=== PATIENT | female | born 1940 | race Caucasian/White ===

== ENCOUNTER 2016-06-24 12:41 | Emergency (ER) | payer MEDICARE ==
[2016-06-24] MEDS ORDERED: ALBUTEROL SULFATE/IPRATROPIUM 3 ML NEBU IH ONE (12:53)
--- NOTE | 2016-06-24 13:18 | ERNOTE ---
Respiratory HPI - Narrative Date of Service: 06/24/16 - General Stated Complaint: Shortness of breath Time Seen by Provider: 06/24/16 12:50 Source: patient, family Exam Limitations: no limitations - History of Present Illness Initial Comments: Daughter States that [place] has been sick for over a week. Daughter states that her mom did have some intermittent confusion earlier in the week but it has since resolved. She states that patient has not eaten or drank enough in the last few days. Patient states she does not want to be here but understands that she needs to be here in the ER. Patient seems agitated with staff asking questions. Daughter states that patient does not see a doctor. Timing/Duration: week, getting worse Severity: moderate Possible Cause: smoke exposure Modifying Factors - (Improves): Reports: nothing Modifying Factors - (Worsens): Reports: coughing, lying down Associated Symptoms: Present: cough, shortness of breath. Absent: fever/chills - Immun/Allergies/Home Medications Immunization: IMMUNIZATION HX Immunizations Up to Date No History of Influenza Vaccine No Hx Pneumococcal Vaccination No Allergies/Adverse Reactions: Allergies Allergy/AdvReac Type Severity Reaction Status Date / Time No Known Allergies Allergy Verified 06/24/16 13:08 Home Medications: Home Medications Medication Instructions Recorded Last Taken NK [No Home Medication] 06/24/16 Unknown Review of Systems - Narrative Narrative: Daughter States patient has had this congested cough since Tuesday. Daughter states that she has been intermittently confused at times. The patient herself states she has a cough and she is now able to cough things up. - Review of Systems Constitutional: Present: fatigue, weakness EENTM: Present: nose congestion, nasal drainage Respiratory: Present: cough, orthopnea, short of breath, wheezing Cardiology: Present: edema - BLE +1 Gastrointestinal/Abdominal: Present: no symptoms reported Genitourinary: Present: no symptoms reported Musculoskeletal: Present: no symptoms reported Skin: Present: no symptoms reported Neurological: Present: no symptoms reported Endocrine: Present: no symptoms reported Hematologic/Lymphatic: Present: no symptoms reported - Social History Living Situations: alone Abuse History: No History of abuse Psych History: No pertinent hx Alcohol Use: rarely Drug Use: none - Immunizations Immunizations Up to Date: No Hx Pneumococcal Vaccination: No History of Influenza Vaccine: No Fever EXAM - Narrative Narrative: Patient short of breath, breathing anywhere from 20-33 times, she was very short of breath on oxygen 3L, patient has not bathed last few days, patient breath sounds are very coarse and wet. Patient prefers not to lay flat, Sits in almost a tri pod position. - Physical Exam General Appearance: Present: WD/WN, alert, mild distress Eye Exam: bilateral eye: normal inspection ENT Exam: Present: hearing grossly normal, dry mucous membranes Neck: Present: non-tender, full range of motion, supple Respiratory: Present: respiratory distress, decreased breath sounds, accessory muscle use, crackles, rhonchi. 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 Risks and benefits explained by this provider. Patient refusing other test. This provider approached her about the possibility of admission. Patient initially refused. After letting her family speak with her, and explaining her medical prognosis she then agreed to admission. Patient is noncompliant with medical treatments at home. Daughter states she has an abnormal chest x ray that she did not want to follow up on. Social work aware of these issues as well. Dr smallwood paged for admission. 06/24/16 15:23 06/24/16 17:15 patient made aware of her CT findings by Dr. Smallwood. Patient still wants to go home even though she will not have oxygen. patient stated she understood her condition and that she may become worse after she leaves without oxygen and medical care. Patient stated that she knows that she may or have low oxygen related injuries tonight to both myself and Dr. Smallwood. Patient is alert and oriented 4 she has been able to make her medical decision thus far. Her daughters are at the bedside and are aware of her decision to leave AMA. 06/24/16 20:27 - PROGRESS/REASSESSMENT Chief Complaint: Dyspnea Condition: Unchanged Progress Note-Subjective: 06/24/16 20:19 Patient left AMA. Patient was spoken to by Dr. Smallwood and this provider regarding her condition. patient stated that she wantedto go home. Patient did repeat that she understood that she may if she leaves the facility without oxygen patient. Restated that she understood that she left the facility without oxygen she may . Patient did agree to make a follow-up appointment tomorrow with Dr. Smallwood regarding her oxygen. Patient's daughters were with her as time and aware of her decision. - VITAL SIGNS Vital Signs - Last Taken Temp 36.6 C 08/03/14 06:34 Pulse Resp BP 124/64 08/03/14 06:34 Pulse Ox - RESULTS AND ORDERS Patient's Lab Results:: I have reviewed the patient's lab results. Results and Orders: 06/24/16 14:56 elevated WBC, abnormal ABG - X-Ray X-Ray #1 XRAY: chest X-Ray Interpretation: Reviewed by me X-Ray Comments: Findings: The cardiac silhouette is within normal limits of size. The mediastinum and hilum are with in normal limits. The lung hernandez are clear. I do not see evidence for an infiltrate, effusion or pulmonary edema. IMPRESSION: 1. NO ACUTE CARDIOPULMONARY PROCESS. Electronically signed by Herbie Del Angel M.D.. - CT/ULTRASOUND CT/Ultrasound Narrative: [facility] PATIENT RADIOLOGY STUDY REPORT Patient Patient Name:SHAWNEE PARK Date: 1940 Sex: F Order Number: [id number] Unique Exam ID: [id number] Exam Requested: ANGIOCHES - CTA Chest * Date Scheduled: Study Priority: Requesting Service: Requesting Physician: Ayaz Silverman Reason for Exam: sob Radiological Report : Exam Date: 06/24/2016 16:54 Ordering Physician: Ayaz Silverman History: Short of breath. Additional history provided by the technologist: Short of breath x5 days. Cough. Painful to lay flat. Technique: Multiple contrast-enhanced axial CT images of the chest were obtained, according to pulmonary angiography protocol. Coronal reconstructed maximal intensity projection images were also submitted for interpretation. Comparisons: CT dated August 01, 2014.. Findings: CT PULMONARY ANGIOGRAPHY WITH CONTRAST, WITH CORONAL MIP IMAGES: There is adequate opacification of the pulmonary arterial tree. There is no evidence of pulmonary embolism. Normal caliber main pulmonary artery. The thyroid gland and thoracic inlet are unremarkable. Again demonstrated is abnormal mediastinal and hilar lymphadenopathy. There is no pathologic axillary lymphadenopathy. Normal caliber thoracic aorta with scattered atherosclerotic changes. The heart size and cardiac chambers are normal. The pericardium is unremarkable. Moderate coronary artery calcifications noted. Abnormal appearance of the lung parenchyma with diffuse pulmonary nodules again identified. Several of these nodules appear to be in a bronchovascular distribution. Additionally, there is suggestion of coalescing nodules at the lung apices that appear to progress as compared to the prior exam. There is nodular thickening of the major fissures. No consolidation or pulmonary mass. The trachea and central airways are patent. There is narrowing of the airways at the level of the elba secondary to bulky lymphadenopathy. No bronchiectasis. No bronchial wall thickening. There is nodular thickening of the left adrenal glands, unchanged, which may represent sequela of a adrenal gland adenoma. The right adrenal gland is unremarkable. There is a slightly nodular hepatic contour; correlate for cirrhosis. Scattered calcified splenic granulomas. There is a small hiatal hernia. The visualized portions of the upper abdomen are otherwise unremarkable. Degenerative changes noted. Impression: 1. No evidence for pulmonary embolus. 2. Abnormal appearance of the lungs with associated abnormal mediastinal and hilar lymphadenopathy, which may be reactive. Correlate for underlying sarcoidosis given the chronicity. Other etiologies are not excluded. Additional findings and comments are as above. 3. Additional findings and comments are as above. Electronically signed by Elio Greenberg D.O.. Approved by: Approval Date: 06-24-2016 Approval Time: 05:04 PM THIS REPORT WAS RECEIVED FROM THE [employer] [facility] Departure - Departure Clinical Impression: Left against medical advice Disposition: Against medical advice Condition: Serious Referrals: Beronica Thakkar MD [Primary Care Provider] -
[2016-06-24 13:39] LABS: Hematocrit 41.8 % (37.0-47.0); Hemoglobin 13.1 gm/dL (12.5-16.0); Mean Cell Volume 90.9 fl (78-100); Mean Corpuscular Hemoglobin 28.5 pg (27-31); Mean Corpuscular Hgb Conc 31.3 g/dl (32-36); Platelet Count 269 K/mm3 (150-450); Red Cell Distribution Width 14.5 % (11.5-14.0); White Blood Count 13.8 K/mm3 (4.0-10.5)
[2016-06-24 13:40] LABS: Total Cells Counted 100
[2016-06-24 13:51] LABS: INR 1.12 INR (0.90-1.10); Prothrombin Time (Patient) 11.6 Seconds (9.4-11.4)
[2016-06-24 13:57] LABS: Band 9 % (0-2.0); Lymphocyte 17 % (20-51); Monocyte 13 % (0-9); Neutrophil 61 % (42-75); Neutrophil # 8.4 K/mm3 (1.3-6.0)
[2016-06-24 13:58] LABS: Platelet Estimate Normal (NORMAL)
[2016-06-24 13:59] LABS: Dohle Bodies Trace; Hypochromia Trace; Toxic Granulation Trace
[2016-06-24 14:00] LABS: Troponin I Less than 0.017 ng/ml (0.00-0.10)
[2016-06-24 14:02] LABS: ALT 63 U/L (19-67); AST 58 U/L (0-48); Albumin * 2.6 gm/dl (3.4-5.0); Alkaline Phosphatase * 140 U/L (50-170); Anion Gap 12.5 mmol/L (6.8-13.8); BNP * 212 pg/mL (5-325); BUN/Creatinine Ratio 29.4 (9.0-21.6); Blood Urea Nitrogen 40 mg/dL (3-23); Calcium * 9.2 mg/dL (7.9-10.9); Carbon Dioxide 29.8 mmol/L (24-32.6); Chloride 97 mmol/L (97-106); Glucose * 120 mg/dL (70-110); Potassium 4.3 mmol/L (3.4-4.6); Sodium 135 mmol/L (132-142); Total Protein 8.7 gm/dL (6.2-8.2)
[2016-06-24] MEDS ORDERED: NORMAL SALINE 1,000 ML IV ONE (14:40)
[2016-06-24] MEDS ORDERED: AZITHROMYCIN 500 MG in DEXTROSE 5 % IN WATER 250 ML IV ONE ×2 (15:15)
[2016-06-24 18:16] VITALS: BP 124/63
== END 2016-06-24 18:00 | disposition left against medical advice (07) ==
LOC: ER 12:41
DX: R06.02 Shortness of breath (principal); R94.31 Abnormal electrocardiogram [ECG] [EKG]; D72.829 Elevated white blood cell count, unspecified; Z91.14 Patient's other noncompliance with medication regimen

== ENCOUNTER 2017-02-26 11:52 | Inpatient (IN) | payer MEDICARE ==
[2017-02-26 12:24] LABS: Mean Cell Volume 63.7 fl (78-100); Mean Corpuscular Hemoglobin 16.4 pg (27-31); Mean Corpuscular Hgb Conc 25.7 g/dl (32-36); Mean Platelet Volume 9.2 fl (6.0-9.5); NRBC# 0.1 k/mm3 (0-1); Neutrophil # 10.4 K/mm3 (1.3-6.0); Neutrophil % 78.9 % (42-75.0); Platelet Count 311 K/mm3 (150-450); Red Blood Count 2.81 M/mm3 (4.2-5.4); Red Cell Distribution Width 22.2 % (11.5-14.0); White Blood Count 13.1 K/mm3 (4.0-10.5)
--- NOTE | 2017-02-26 12:31 | ERNOTE ---
Lower Extremity HPI - Narrative Date of Service: 02/26/17 - General Lower Extremities Pain: foot: left Time Seen by Provider: 02/26/17 12:00 Source: patient, family Exam Limitations: no limitations - Immun/Allergies/Home Medications Immunizations: IMMUNIZATION HX Immunizations Up to Date No History of Influenza Vaccine No Hx Pneumococcal Vaccination No Allergies/Adverse Reactions: Allergies Allergy/AdvReac Type Severity Reaction Status Date / Time No Known Allergies Allergy Verified 02/26/17 12:05 Home Medications: HOME MEDICATIONS HYDROcodone/ACETAMINOPHEN [Derby 10-325 Tablet] 1 each PO Q6H 02/26/17 [Last Taken Unknown] Meclizine HCl 25 mg PO TID 02/26/17 [Last Taken Unknown] Pramipexole Di-HCl [Pramipexole ER] 0.125 mg PO HS 02/26/17 [Last Taken Unknown] - History of Present Illness Narrative: Pt. comes in with 3 day history of blister and discoloration of L foot midfoot distally. Pt. states that the blister started three days ago and popped 24 hours ago and states that her toes have turned black this morning. Pt. saw Dr Hu yesterday for evaluation of foot fracture that she obtained on , who ordered a us to check the arterial flow of the foot for Tuesday. Location of Incident: home Method of Injury: Reports: direct blow Loss of Consciousness: Reports: no loss of consciousness Associated Symptoms: Reports: unable to bear weight Subsequent Symptoms: Reports: motor loss. Denies: numbness Prior Treament: Reports: recently seen, treated by physician. Denies: recently hospitalized, similar symptoms before, currently on antibiotics Review of Systems - Review of Systems Constitutional: Present: no symptoms reported. Absent: fever, chills, weakness , fatigue, malaise EYE: Present: no symptoms reported ENT: Present: no symptoms reported Respiratory: Present: no symptoms reported. Absent: shortness of breath, cough , wheezing Cardiology: Present: no symptoms reported. Absent: chest pain, syncope, edema Gastrointestinal/Abdominal: Present: no symptoms reported. Absent: nausea, vomiting, diarrhea, abdominal pain Genitourinary: Present: no symptoms reported Musculoskeletal: Present: joint pain - L foot Skin: Present: change in color - L foot purple and black distally Neurological: Present: weakness - L foot, tingling - L foot. Absent: headache, dizziness/light-headedness, numbness All Other Systems: All systems neg except as marked - Patient's Past Medical History Patient History - Cardiac/Respiratory: Hypertension, Hyperlipidemia Patient History - Cancer: No Hx of Cancer Patient History - Surgical Procedures: No surgical history - Social History Abuse History: No History of abuse Psych History: No pertinent hx Smoking Status: Current every day smoker Have you smoked in the past 12 months: Yes - Immunizations Immunizations Up to Date: No Hx Pneumococcal Vaccination: No History of Influenza Vaccine: No Physical Exam - Physical Exam General Appearance: Present: wd/wn, alert, mild distress Head Exam: Present: normal inspection, no evidence of injury Eye Exam: Normal inspection: bilateral, PERRL: bilateral, EOMI: bilateral Ears, Nose, Throat: Present: normal ENT inspection, normal pharynx Neck: Present: normal inspection, nontender, supple, full range of motion. Absent: lymphadenopathy (R), lymphadenopathy (L) Respiratory: Present: no respiratory distress, no accessory muscle use, chest nontender, wheezing - BUL expiratory Cardiovascular/Chest: Present: regular rate, rhythm, no murmur, normal peripheral pulses Gastrointestinal/Abdominal: Present: normal bowel sounds, nontender, nondistended, soft, no organomegaly Back Exam: Present: normal inspection, normal range of motion, no CVA tenderness , no vertebral tenderness Extremity Exam: Present: decreased range of motion - flexion and extension of foot, other - tenderness of distal foot pt. states that she can feel sharp and dull to R distal foot but states taht she has tingling. Blister 5cm x 4 cm dorsal mid foot open. purple dicoloration L mid foot to prox toes. Black discoloration from prox toes distally. Neurological Exam: Present: alert, oriented, normal mood/affect, other - pain and tingling to foot pt. feels sharp and dull Skin Exam: Present: cool/dry, pallor, other - see description of L foot above ED Progress - Date and Time Seen: Date and Time: 02/26/17 Notified of critically low hemoglobin by llab. Ordered occult blood and cath UA. Ordered EKG and trop and IVF and 2 U PRBC after hemaglobin confirmed with new draw. Troponin and lactic acid critical, increased CK, and WBC feel is likely related to tissue in foot and anemia with heart strain as EKG also with some generalized ST depression. Pt. denies any abdominal pain black or bloody stools but does state that she has had bloody urine recently. 02/26/17 14:[address] Haney and he states that he will accept pt. if Dr Quezada able to take care of this pt. Discussed with Dr Quezada and he accepts consult for admission. Discussed again with Dr Haney and he has no further orders at this time. - Results and Orders Patient's Lab Results:: I have reviewed the patient's lab results. Results and Orders: Abnormal Lab Results 02/26/17 02/26/17 02/26/17 Range/Units 12:20 12:20 12:20 WBC 13.1 H (4.0-10.5) K/mm3 RBC 2.81 L (4.2-5.4) M/mm3 Hgb 4.6 L* D (12.5-16.0) gm/dL Hct 17.9 L* D (37.0-47.0) % MCV 63.7 L (78-100) fl MCH 16.4 L (27-31) pg MCHC 25.7 L (32-36) g/dl RDW 22.2 H (11.5-14.0) % Immature Gran % (Auto) 1.40 H (0.001-0.429) % Immature Gran # (Auto) 0.18 H (0.000-0.0310) K/mm3 Neutrophils % 78.9 H (42-75.0) % Lymphocytes % 13.2 L (20-51) % Neutrophils # 10.4 H (1.3-6.0) K/mm3 ESR 108 H (0-15) mm/hr Potassium 4.8 H (3.4-4.6) mmol/L Chloride 95 L (97-106) mmol/L Anion Gap 16.6 H (6.8-13.8) mmol/L BUN 26 H (3-23) mg/dL Est GFR (Non-Af Amer) 42 L (60-130) mL/min Lactic Acid, Venous (0.4-1.9) mmol/L Total Bilirubin 1.3 H (0.0-1.1) mg/dL Creatine Kinase 862 H (0-259) U/L Troponin I (0.00-0.10) ng/ml C-Reactive Prot, Quant 11.2 H (0.0-0.9) mg/dL Albumin 2.3 L (3.4-5.0) gm/dl Stool Occult Blood Crossmatch 02/26/17 02/26/17 02/26/17 Range/Units 12:20 12:30 12:35 WBC (4.0-10.5) K/mm3 RBC (4.2-5.4) M/mm3 Hgb (12.5-16.0) gm/dL Hct (37.0-47.0) % MCV (78-100) fl MCH (27-31) pg MCHC (32-36) g/dl RDW (11.5-14.0) % Immature Gran % (Auto) (0.001-0.429) % Immature Gran # (Auto) (0.000-0.0310) K/mm3 Neutrophils % (42-75.0) % Lymphocytes % (20-51) % Neutrophils # (1.3-6.0) K/mm3 ESR (0-15) mm/hr Potassium (3.4-4.6) mmol/L Chloride (97-106) mmol/L Anion Gap (6.8-13.8) mmol/L BUN (3-23) mg/dL Est GFR (Non-Af Amer) (60-130) mL/min Lactic Acid, Venous 2.4 H* (0.4-1.9) mmol/L Total Bilirubin (0.0-1.1) mg/dL Creatine Kinase (0-259) U/L Troponin I 0.116 H* (0.00-0.10) ng/ml C-Reactive Prot, Quant (0.0-0.9) mg/dL Albumin (3.4-5.0) gm/dl Stool Occult Blood Crossmatch See Detail 02/26/17 Range/Units 14:03 WBC (4.0-10.5) K/mm3 RBC (4.2-5.4) M/mm3 Hgb (12.5-16.0) gm/dL Hct (37.0-47.0) % MCV (78-100) fl MCH (27-31) pg MCHC (32-36) g/dl RDW (11.5-14.0) % Immature Gran % (Auto) (0.001-0.429) % Immature Gran # (Auto) (0.000-0.0310) K/mm3 Neutrophils % (42-75.0) % Lymphocytes % (20-51) % Neutrophils # (1.3-6.0) K/mm3 ESR (0-15) mm/hr Potassium (3.4-4.6) mmol/L Chloride (97-106) mmol/L Anion Gap (6.8-13.8) mmol/L BUN (3-23) mg/dL Est GFR (Non-Af Amer) (60-130) mL/min Lactic Acid, Venous (0.4-1.9) mmol/L Total Bilirubin (0.0-1.1) mg/dL Creatine Kinase (0-259) U/L Troponin I (0.00-0.10) ng/ml C-Reactive Prot, Quant (0.0-0.9) mg/dL Albumin (3.4-5.0) gm/dl Stool Occult Blood Positive H Crossmatch - Vital Signs Patient's Vital Signs:: I have reviewed the patient's vital signs. Vital Signs: Vital Signs 02/26/17 11:53 Temperature 36.6 C Pulse Rate 98 Respiratory 14 Rate Blood Pressure 135/42 O2 Sat by Pulse 94 Oximetry - EKG EKG: nonspecific ST T wave changes, other - SR c PACs EKG read: Interp. by me - X-Ray X-Ray #1 X-Ray: chest Interpretation: Reviewed by me X-ray Comments: chronic scarring and mediastinal thickening noted unchanged from previous. X-Ray #2 X-Ray: abdomen Interpretation: Reviewed by me X-ray Comments: Non specific bowel gas pattern - CT/Ultrasound CT/Ultrasound Narrative: Arterial duplex with adequate flow proximal to dorsalis but no flow distally to dorsalis pedis. - Progress/Reassessment Chief Complaint: Foot Injury/Pain Progress:: Unchanged Departure Clinical Impression: Arterial occlusion, Elevated lactic acid level, Elevated troponin Rhabdomyolysis Qualifiers: Rhabdomyolysis type: traumatic Encounter type: initial encounter Qualified Code (s): T79.6XXA - Traumatic ischemia of muscle, initial encounter Anemia Qualifiers: Anemia type: unspecified type Qualified Code(s): D64.9 - Anemia, unspecified COPD (chronic obstructive pulmonary disease) Qualifiers: COPD type: unspecified COPD Qualified Code(s): J44.9 - Chronic obstructive pulmonary disease, unspecified Foot fracture, left Qualifiers: Encounter type: sequela Fracture type: closed Qualified Code(s): S92.902S - Unspecified fracture of left foot, sequela - Departure Disposition: [facility] Condition: Serious Critical Care Time - Critical Care Critical Time Spent:: Yes Total time (mins) Spent:: 30
[2017-02-26 12:36] LABS: Hematocrit 17.9 % (37.0-47.0); Hemoglobin 4.6 gm/dL (12.5-16.0)
[2017-02-26 12:42] LABS: Albumin * 2.3 gm/dl (3.4-5.0); Anion Gap 16.6 mmol/L (6.8-13.8); BUN/Creatinine Ratio 19.7 (9.0-21.6); Bilirubin, Total 1.3 mg/dL (0.0-1.1); CRP 11.2 mg/dL (0.0-0.9); Carbon Dioxide 25.2 mmol/L (24-32.6); Potassium 4.8 mmol/L (3.4-4.6); Total Protein 7.3 gm/dL (6.2-8.2)
[2017-02-26] MEDS ORDERED: NORMAL SALINE 1,000 ML IV ONE (12:45)
[2017-02-26] MEDS ORDERED: MORPHINE SULFATE 2 MG/ML DISP.SYRIN IV ONE (12:45)
[2017-02-26] MEDS ORDERED: ALBUTEROL SULFATE 2.5 MG/0.5 ML VIAL.NEB IH ONE ×2 (13:01→14:08)
[2017-02-26] MEDS ORDERED: MORPHINE SULFATE 2 MG/ML DISP.SYRIN ONE (13:12)
[2017-02-26] MEDS ORDERED: HYDROmorphone HCL 1 MG/ML DISP.SYRIN IV ONE (14:11)
[2017-02-26] MEDS ORDERED: HYDROmorphone HCL 1 MG/ML DISP.SYRIN ONE (14:27)
[2017-02-26 14:51] LABS: Prothrombin Time (Patient) 11.2 Seconds (9.0-11.0)
[2017-02-26 14:53] LABS: INR 1.12 INR (0.90-1.10); Partial Thrombolplastin Time 28.3 Seconds (24-32)
[2017-02-26 15:04] LABS: Urine Appearance Bloody; Urine Bilirubin Negative (NEGATIVE); Urine Blood 250 /ul (NEGATIVE); Urine Color Dark Yellow; Urine Ketone Negative (NEGATIVE); Urine Protein 100 mg/dL (NEGATIVE); Urine Urobilinogen 4 EU/dl (NORMAL)
[2017-02-26 15:05] LABS: Urine Bacteria 1+; Urine Nitrite Positive (NEGATIVE); Urine RBC >50 /hpf (0-5)
[2017-02-26 16:14] LABS: Iron 12 mcg/dL (35-120); Transferrin Sat. (% Sat.) 3 % (15-55)
[2017-02-26] MEDS ORDERED: FLU VACC QS2017-18(6MOS UP)/PF 60 MCG/0.5 ML SYRINGE IM ONE (16:26)
[2017-02-26] MEDS ORDERED: HYDROmorphone HCL 1 MG/ML DISP.SYRIN IV PRN (16:38)
[2017-02-26] MEDS ORDERED: HYDROmorphone HCL 2 MG/ML VIAL ONE (16:51)
--- NOTE | 2017-02-26 17:31 | HP ---
Chief Complaint - Chief Complaint Date of Service: 02/26/17 Time of Service: 17:00 Chief Complaint: Left Foot Pain History of Present Illness: Shawnee is a 76 yo female presenting to the [facility] ER with left foot pain and discoloration. She reports dropping an object on her foot after black tuesday. She has been seeing an outside hay sorter but with the changes in color and increased pain over the last few days she came to the ER. Pain is located in her toes on the left foot. - Patient's Past Medical History Patient History - Medical: Anemia, Alcohol Abuse, Arthritis, Depression Patient History - Cardiac/Respiratory: Hypertension, Hyperlipidemia Patient History - Cancer: No Hx of Cancer Patient History - Surgical Procedures: No surgical history Patient History - Other: None - Social History Living Situations: alone Abuse History: No History of abuse Psych History: No pertinent hx Smoking Status: Current every day smoker Have you smoked in the past 12 months: Yes Do you dip or chew tobacco: No Patient requests Smoking Cessation Consult: Yes Initiate information on Smoking Cessation: Yes Alcohol Use: rarely Drug Use: none - Immunizations Immunizations Up to Date: No Hx Pneumococcal Vaccination: No History of Influenza Vaccine: No Review Of Systems (GEN) - Review of Systems Generalized/Overall Review: Absent: Chills, Fever EENTM: Present: No Symptoms Reported Respiratory: Present: No Symptoms Reported Cardiac: Present: No Symptoms Reported Abdominal: Present: No Symptoms Reported Genitourinary: Present: No Symptoms Reported Musculoskeletal: Present: Other - Left foot and toe pain Skin: Present: Change in Color - purple discoloration to left toes Immunizations: IMMUNIZATION HX Immunizations Up to Date No History of Influenza Vaccine No Hx Pneumococcal Vaccination No Allergies/Adverse Reactions: Allergies Allergy/AdvReac Type Severity Reaction Status Date / Time No Known Allergies Allergy Verified 02/26/17 12:05 Home Medications: HOME MEDICATIONS HYDROcodone/ACETAMINOPHEN [[place] 10-325 Tablet] 1 each PO Q6H 02/26/17 [Last Taken Unknown] Meclizine HCl 25 mg PO TID 02/26/17 [Last Taken Unknown] Pramipexole Di-HCl [Pramipexole ER] 0.125 mg PO HS 02/26/17 [Last Taken Unknown] Exam - Exam Vital Signs: Vital Signs - Last Taken Temp 36.1 C L 02/26/17 15:18 Pulse 93 02/26/17 15:18 Resp 21 H 02/26/17 15:18 BP 125/51 02/26/17 15:18 Pulse Ox 90 02/26/17 15:18 Constitutional: Present: Alert, Oriented x3, Cooperative ENT Exam: Present: hearing grossly normal Eye Exam: bilateral eye: normal inspection Respiratory: Present: lungs clear, normal breath sounds Cardiovascular/Chest: Present: regular rate, rhythm, no murmur Peripheral Pulses: dorsalis-pedis (R): 2+, dorsalis-pedis (L): 0 Abdomen: Present: Normal bowel sounds, soft, nontender, nondistended Extremity: Present: other - Left foot with non pitting swelling. Toes and mid foot distally are mottled. Skin Exam: Present: mottled - Distal left foot Appearance: Present: appropriate appearance, appropriate insight Eye contact: Present: cooperative, good eye contact, normal speech Diagnostic Studies: Abnormal Lab Results 02/26/17 Range/Units 15:46 Lactic Acid, Venous 2.3 H* (0.4-1.9) mmol/L Laboratory Results WBC 13.1 K/mm3 (4.0-10.5) H 02/26/17 12:20 RBC 2.81 M/mm3 (4.2-5.4) L 02/26/17 12:20 Hgb 4.6 gm/dL (12.5-16.0) L* D 02/26/17 12:20 Hct 17.9 % (37.0-47.0) L* D 02/26/17 12:20 MCV 63.7 fl (78-100) L 02/26/17 12:20 MCH 16.4 pg (27-31) L 02/26/17 12:20 MCHC 25.7 g/dl (32-36) L 02/26/17 12:20 RDW 22.2 % (11.5-14.0) H 02/26/17 12:20 Plt Count 311 K/mm3 (150-450) 02/26/17 12:20 MPV 9.2 fl (6.0-9.5) 02/26/17 12:20 Immature Gran % (Auto) 1.40 % (0.001-0.429) H 02/26/17 12:20 Immature Gran # (Auto) 0.18 K/mm3 (0.000-0.0310) H 02/26/17 12:20 Neutrophils % 78.9 % (42-75.0) H 02/26/17 12:20 Lymphocytes % 13.2 % (20-51) L 02/26/17 12:20 Monocytes % 6.2 % (0.0-9) 02/26/17 12:20 Eosinophils % 0.2 % (0.0-3.0) 02/26/17 12:20 Basophils % 0.1 % (0.0-1.0) 02/26/17 12:20 Nucleated RBC % 0.1 k/mm3 (0-1) 02/26/17 12:20 Neutrophils # 10.4 K/mm3 (1.3-6.0) H 02/26/17 12:20 Lymphocytes # 1.7 k/mm3 (1.5-3.5) 02/26/17 12:20 Monocytes # 0.8 k/mm3 (0.0-1.0) 02/26/17 12:20 Eosinophils # 0.0 k/mm3 (0.0-0.7) 02/26/17 12:20 Absolute Basophils 0.0 k/mm3 (0.0-0.1) 02/26/17 12:20 ESR 108 mm/hr (0-15) H 02/26/17 12:20 PT 11.2 Seconds (9.0-11.0) H 02/26/17 12:20 INR (Anticoag Therapy) 1.12 INR (0.90-1.10) H 02/26/17 12:20 PTT ([place]) 28.3 Seconds (24-32) 02/26/17 12:20 Fibrinogen 435 mg/dL (202-388) H 02/26/17 12:20 Sodium 132 mmol/L (132-142) 02/26/17 12:20 Plasma Sodium 132 mmol/L (130-142) 02/26/17 12:20 Potassium 4.8 mmol/L (3.4-4.6) H 02/26/17 12:20 Chloride 95 mmol/L (97-106) L 02/26/17 12:20 Carbon Dioxide 25.2 mmol/L (24-32.6) 02/26/17 12:20 Anion Gap 16.6 mmol/L (6.8-13.8) H 02/26/17 12:20 BUN 26 mg/dL (3-23) H 02/26/17 12:20 Creatinine 1.32 mg/dL (0.4-1.4) 02/26/17 12:20 Est GFR (Non-Af Amer) 42 mL/min (60-130) L 02/26/17 12:20 BUN/Creatinine Ratio 19.7 (9.0-21.6) 02/26/17 12:20 Random Glucose 108 mg/dL (70-110) 02/26/17 12:20 Lactic Acid, Venous 2.3 mmol/L (0.4-1.9) H* 02/26/17 15:46 Calcium 8.0 mg/dL (7.9-10.9) 02/26/17 12:20 Calcium Adj for Albumin 9.0 mg/dL (8.4-10.2) 02/26/17 12:20 Iron 12 mcg/dL (35-120) L 02/26/17 12:20 TIBC 350 mcg/dL (260-445) 02/26/17 12:20 Transferrin % Sat 3 % (15-55) L 02/26/17 12:20 Total Bilirubin 1.3 mg/dL (0.0-1.1) H 02/26/17 12:20 AST 43 U/L (0-48) 02/26/17 12:20 ALT 24 U/L (19-67) 02/26/17 12:20 Alkaline Phosphatase 103 U/L (50-170) 02/26/17 12:20 Creatine Kinase 862 U/L (0-259) H 02/26/17 12:20 Troponin I 0.116 ng/ml (0.00-0.10) H* 02/26/17 12:35 C-Reactive Prot, Quant 11.2 mg/dL (0.0-0.9) H 02/26/17 12:20 Total Protein 7.3 gm/dL (6.2-8.2) 02/26/17 12:20 Albumin 2.3 gm/dl (3.4-5.0) L 02/26/17 12:20 Urine Color Dark yellow 02/26/17 14:05 Urine Appearance Bloody 02/26/17 14:05 Urine pH 6.0 pH (5.0-7.0) 02/26/17 14:05 Ur Specific [place] 1.020 SP.GR. (1.005-1.010) 02/26/17 14:05 Urine Protein 100 mg/dL (NEGATIVE) H 02/26/17 14:05 Urine Glucose (UA) Negative mg/dL (NEGATIVE) 02/26/17 14:05 Urine Ketones Negative mg/dL (NEGATIVE) 02/26/17 14:05 Urine Blood 250 /ul (NEGATIVE) H 02/26/17 14:05 Urine Nitrate Positive (NEGATIVE) H 02/26/17 14:05 Urine Bilirubin Negative mg/dl (NEGATIVE) 02/26/17 14:05 Prot Sulfosalicylic Acd 4+ mg/dL (0) H 02/26/17 14:05 Urine Urobilinogen 4 EU/dl (NORMAL) H 02/26/17 14:05 Ur Leukocyte Esterase 100 /ul (NEGATIVE) H 02/26/17 14:05 Urine RBC >50 /hpf (0-5) H 02/26/17 14:05 Urine WBC 10-25 /hpf (0-5) H 02/26/17 14:05 Ur Epithelial Cells 0-5 /hpf (0-5) 02/26/17 14:05 Urine Bacteria 1+ (NONE) H 02/26/17 14:05 Urine Culture Comments Culture to follow 02/26/17 14:05 Stool Occult Blood Positive H 02/26/17 14:03 Blood Type O Positive 02/26/17 12:30 Antibody Screen Negative 02/26/17 12:30 Crossmatch See Detail 02/26/17 12:30 Assessment/Plan - Narrative Narrative: Shawnee was admitted for rhabdomyolysis secondary to left foot injury. The injury was though to be chronic and was reportedly gangrenous. 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 However on exam this is an acute process and there is early mottling present. Patient needs to be evaluated by a vascular surgeon. Will transfer emergently to [facility] as the closest facility with vascular surgery equipped to handle this condition. See transfer summary for further details. - Assessment/Plan (1) Arterial occlusion Problem: Acute (2) Rhabdomyolysis Problem: Acute Qualifiers: Rhabdomyolysis type: traumatic Encounter type: initial encounter Qualified Code(s): T79.6XXA - Traumatic ischemia of muscle, initial encounter
--- NOTE | 2017-02-26 17:58 | DS ---
Transfer Discharge Summary - Diagnosis(s)/Problems (1) Arterial occlusion Problem: Acute (2) Anemia Problem: Acute (3) COPD (chronic obstructive pulmonary disease) Problem: Acute (4) Rhabdomyolysis Problem: Acute - Course Description of Stay: Shawnee is a 76 yo female with crush injury the day after [place]. She had been following podiatry at an outside clinic. She presented to the [facility] ER due to worsening pain in her toes over the last few days and bruising. In evaluation in the ER she was found to have a hemoglobin of 4, a CK of 800 (with normal renal function), there was an open blister to dorsum of her left foot, no pulses palpable or via Doppler of her dorsalis pedis of left foot. ER contacted Medicine for discussion of whether to admit or transfer patient. It was discussed that medicine could manage the anemia and rhabdo but would need to consult ortho in regards to managing the left foot. Ortho was consulted by the ER but via the phone believed that the injury was chronic with necrotic digits. The patient was admitted to medicine with ortho consultation. However on evaluation the vascular injury appeared to be more acute and vascular surgery is needed. Our closest transfer facilities do not have vascular surgery and therefore [facility] was contacted for transfer. During the patient' s brief period of time at our facility she was started on typed and crossed blood in the ER. She completed a first unit and a second unit was started and will continue during transfer for her hemoglobin of 4. She has no acute bleeding from her left foot. There was a positive hemoccult stool from the ER, but the patient has not noticed any blood in her stool. The patient was also placed on oxygen. She was maintaining oxygen sats of >90% on 1lpm, however due to her vascular occlusion and severe anemia oxygen was increased to 3-4 liters to keep her closer to 100% SpO2. She was also given Dilaudid 1mg IV every 1hr prn severe pain which appeared to be helpful in reducing pain. Procedures Performed: none - Results and Findings Results and Findings: Laboratory Results - last 24 hr 02/26/17 15:46 Lactic Acid, Venous 2.3 H* - Medications Medications: Active Medications Hydromorphone HCl (Dilaudid) 1 mg IV Q1H PRN PRN Reason: Severe Pain Stop: 03/28/17 16:39 Last Admin: 02/26/17 17:03 Dose: 1 mg Discontinued Medications Albuterol Sulfate (Albuterol Sulfate 2.5 Mg/0.5ml) 2.5 mg IH ONCE ONE Stop: 02/26/17 13:02 Last Admin: 02/26/17 14:11 Dose: 2.5 mg Hydromorphone HCl (Dilaudid) 1 mg IV ONCE ONE Stop: 02/26/17 14:12 Last Admin: 02/26/17 14:28 Dose: 1 mg Sodium Chloride (Sodium Chloride 0.9%) 1,000 mls @ 999 mls/hr IV .Q1H1M ONE Stop: 02/26/17 13:45 Last Infusion: 02/26/17 15:07 Dose: Infused Morphine Sulfate (Morphine Sulfate) 2 mg IV ONCE ONE Stop: 02/26/17 12:46 Last Admin: 02/26/17 13:16 Dose: 2 mg - Disposition Disposition: [facility] Condition: Serious Discharge Date: 02/26/17
[2017-02-26 18:49] VITALS: BP 126/62
== END 2017-02-26 19:12 | disposition short-term general hospital (02) | DRG 301 ==
LOC: ER 11:52 → MS 14:19
PROVIDERS: ADMIT Family Medicine; ATTEND Family Medicine
PROC: 0T9B7ZZ Drainage of Bladder, Via Natural or Artificial Opening (ICD-10-PCS; principal; 2017-02-26)
PROC: 30283B1 Transfusion of Nonautologous 4-Factor Prothrombin Complex Concentrate into Vein, Percutaneous Approach (ICD-10-PCS; 2017-02-26)
DX: S92.902S Unspecified fracture of left foot, sequela; X58.XXXS Exposure to other specified factors, sequela; E78.5 Hyperlipidemia, unspecified; I10 Essential (primary) hypertension; D64.9 Anemia, unspecified; T79.6XXA Traumatic ischemia of muscle, initial encounter; J44.9 Chronic obstructive pulmonary disease, unspecified; I77.1 Stricture of artery; F17.210 Nicotine dependence, cigarettes, uncomplicated
CPT/HCPCS: 36430; 51701; 71020; 74020; 80053; 81001; 82272; 82550; 83540; 83550; 83605; 83874; 84484; 85025; 85384; 85610; 85652; 85730; 86140; 86850; 86900; 87086; 93005; 93926; 94640; 96374; 96375; 99291; P9016; 36415; 71046; 74019; 94664